=== PATIENT | female | born 2000 | race Caucasian/White ===

== ENCOUNTER 2023-01-30 18:25 | Emergency (ER) | payer BC, SELFPAY ==
[2023-01-30 18:26] VITALS: BP 128/87; PULSE 105; RESP 19; TEMP 36.2; O2SAT 100; BMI 33.7
--- NOTE | 2023-01-30 19:02 | EDS_ITS ---
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 The pain has been constant. There is no nausea or vomiting. There is no diarrhea or constipation. There is no anorexia. There is no fever or chills. Does not hurt to walk. Does not hurt to cough. She denies dysuria, frequency, urgency or hematuria. She denies back or flank pain. She does have a metal allergy and a significant periumbilical rash. Prior similar symptoms: No Recent Illness/Hospitalization: No PFSH PFSH Allergy/AdvReac Type Severity Reaction Status Date / Time No Known Allergies Allergy Verified 01/30/23 18:28 Surgical History no surgical history no surgical history Social History (Updated 01/30/23 @ 19:[address] James Mays MD) household members: none alcohol intake: never substance use type: does not use ROS ROS ED Constitutional Constitutional ED: Denies chills, fever(s), subjective, sweats or weight loss Eyes Eyes: Denies blurry vision, change in vision or diplopia ENT ENT ED: Denies ear pain, rhinorrhea or sore throat Cardiovascular Cardiovascular: Denies chest pain, orthopnea, palpitations, paroxysmal nocturnal dyspnea or racing heartbeat Respiratory/Chest Respiratory/Chest: Denies cough, dyspnea, dyspnea on exertion, orthopnea or paroxysmal nocturnal dyspnea Gastrointestinal Gastrointestinal: Reports abdominal pain; Denies constipation, diarrhea, melena, nausea or vomiting Genitourinary Genitourinary ED: Reports LMP (females 10-50) Details: Comment: (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); Denies dysuria, hematuria or urinary frequency Musculoskeletal Musculoskeletal: Denies arthralgias, back pain, myalgias or neck pain Integumentary Reports rash Neurologic Neurologic: Denies headache(s), paresthesias or weakness Psychiatric Psychiatric: Reports anxiety; Denies depression Endocrine Endocrinology: Denies cold intolerance or heat intolerance Hematologic/Lymphatic Hematologic/Lymphatic: Reports systems reviewed and no addt'l complaints, except as documented EXAM Physical Exam Const Vital Signs: 01/30/23 18:26 Temperature 97.2 F L Temperature Source Temporal Pulse Rate 105 H Respiratory Rate 19 H Blood Pressure 128/87 H Blood Pressure Mean 100 Pulse Ox 100 Oxygen Delivery Method Room Air Positive well nourished and well developed General Appearance ED: well developed and NAD; Negative for cyanotic, diaphoret ic or pallor HEENT Reports moist mucous membranes HEENT Narrative: Head is atraumatic normocephalic. Ears are normal. Nares are patent. Pharynx is normal. Eyes PERRL and EOMs intact bilaterally General Eye ED: Negative for pale conjunctiva or scleral icterus Neck no lymphadenopathy, supple and no JVD Resp normal respiratory effort Cardio regular rate, regular rhythm, S1 normal heart sound, S2 normal heart sound and no murmurs GI non-tender, non-distended and no masses; Negative for normal to inspection, nondistended, normoactive bowel sounds or hepatosplenomegaly GI Narrative: Patient has evidence of contact dermatitis due to metal on belts. There is no evidence of an infection. Had the patient jump up and down with no discomfort. She is not anorexic. Negative Rovsing sign. Inspection: Negative for abdominal distention Auscultation: normoactive bowel sounds Palpation: soft; Negative for tender, guarding, splenomegaly, mass or rebound tenderness present Back/Spine no CVA tenderness Extremity normal to inspection General Extremety ED: Negative for edema or tenderness General Extremity: Negative for edema Neuro oriented x3, CN's II-XII intact bilaterally and no sensory deficits noted Sensorium / Orientation: alert Psych mental status grossly normal Skin No no rashes or lesions noted, no wounds and skin turgor normal General Skin Exam: elasticity normal; Negative for jaundice or pallor Rashes: rashes noted MDM MDM MDM Narrative Medical decision making narrative: Patient was made sure that she does not have appendicitis. She has no symptoms and a benign abdominal exam. Furthermore she is afebrile. Patient was told the cause of her periumbilical pain is unknown. There is no evidence of hernia or defect. History & Record Review Additional record(s) reviewed:: No prior records Discharge Plan Triage Chief Complaint: Abd Pain ED Provider: DavonJames Dx/Rx/DC Orders Clinical Impression: Umbilical pain, Contact dermatitis Instructions: ED Abdominal Pain Unkn Cause Fem Primary Care Provider: Michelle Pedro Referrals: [facility] Doctor,Out of [Non-Staff] - As Needed Disposition Disposition: Home, Self Care
== END 2023-01-30 19:15 | disposition home or self-care (01) ==
PROVIDERS: Emergency Provider Emergency Medicine; PCP Family Medicine; Visit Provider Emergency Medicine
DX: R10.33 Periumbilical pain (principal); L25.9 Unspecified contact dermatitis, unspecified cause
CPT/HCPCS: 99282

== ENCOUNTER 2024-02-24 10:19 | Emergency (ER) | payer BC, SELFPAY ==
[2024-02-24 10:21] VITALS: BP 141/81; PULSE 113; RESP 16; TEMP 37; O2SAT 99; BMI 36.8
--- NOTE | 2024-02-24 10:25 | ED.VIS.CHEST ---
HPI History of Present Illness Chief Complaint: Chest Pain [facility] Medical History (Updated 02/24/24 @ 10:24 by Joelle Mead) Anxiety Allergy/AdvReac Type Severity Reaction Status Date / Time No Known Allergies Allergy Verified 01/30/23 18:28 Surgical History (Updated 02/24/24 @ 10:26 by Joelle Mead) H/O mastectomy Social History (Updated 01/30/23 @ 19:[address] James Mays MD) household members: none Smoking Status: Current every day smoker tobacco type: e-cigarettes alcohol intake: never substance use type: does not use EXAM Physical Exam Const Vital Signs: 02/24/24 10:21 02/24/24 10:28 02/24/24 12:20 Temperature 98.6 F Temperature Source Oral Pulse Rate 113 H 91 Respiratory Rate 16 18 Blood Pressure 141/81 H 133/81 H Blood Pressure Mean 101 98 Pulse Ox 99 97 Oxygen Delivery Method Room Air Room Air Room Air 02/24/24 13:52 Temperature Temperature Source Pulse Rate 74 Respiratory Rate 18 Blood Pressure 134/88 H Blood Pressure Mean 103 Pulse Ox 99 Oxygen Delivery Method Room Air MDM MDM MDM Narrative Medical decision making narrative: HISTORY OF PRESENT ILLNESS: 23-year-old female presents with chest pain started last night while she was at work. She states this could be anxiety. She has no complaints at this time. She is a small to be evaluated just to be safe. Denies chest pain at this time. Denies calf tenderness. Denies feeling presents for PE. Denies any bleeding diathesis. Notes she is on hormone placement therapy in the form of testosterone denies any estrogen use. The patient denies recent surgery in the last 4 weeks or immobilization in the last 3 days, denies previous diagnosis of DVT or PE, hemoptysis, unilateral leg swelling or malignancy with treatment the last 6 months or palliative. No estrogen use noted. Patient denies sudden onset of pain, no tearing sensation, no migratory symptoms, no new numbness, weakness or loss of sensation. Patient denies family history or personal history of Connective tissue disorders (Marfan's Syndrome, Hector Danlos etc) REVIEW OF SYSTEMS: Pertinent positives: Chest pain Pertinent negatives: Shortness of breath, leg swelling, bleeding diathesis PHYSICAL EXAM: Nursing triage notes reviewed, Vital signs reviewed Constitutional: please see mdm HENT: MMM Eyes: Pupils equal round and reactive to light, Extraocular muscles intact Neck: No stridor, no JVD, full neck ROM Lungs: Clear to auscultation, No wheezing or rales. No increased work of breathing, no conversational dyspnea, no accessory muscle use, no nasal flaring. No respiratory distress noted Heart: Regular rate and rhythm, No murmurs, No rubs and No gallops, 2+ distal pulses (radial, femoral, posterior tibial) in all extremities Abdomen: Soft, there is no tenderness, rigidity, rebound or guarding, no obvious peritoneal signs, no palpable pulsatile abdominal masses, no auscultated abdominal bruit : No CVAT Extremities: No edema Neuro: No focal neurological deficits, cranial nerves II through XII intact, 5/5 strength in all extremities. Intact sensation to light touch in all extremities, 2+ reflexes bilateral patella tendons. Normal gait. No ataxia. Skin: No rash or lesions noted MEDICAL DECISION MAKING: Chief Complaint: Chest pain External records reviewed: No recent cardiac catheterizations, stress test or echocardiograms noted in the chart Factors affecting care: Anxiety Social determinants of health: Denies illicit drug use History obtained from others: none Consults: none [facility] Narrative: Patient was initially tachycardic otherwise hemodynamically stable afebrile and nontoxic-appearing. Exam without focal cardiopulmonary normalities. I considered the following differential diagnosis: ACS, arrhythmia, anemia, pneumonia, pneumothorax, PE, aortic dissection, GI etiology (Boerhaave syndrome, Linda-Ren tear), pericarditis I obtained a broad lab and imaging workup to further elucidate the etiology of the patient complaints. I considered pulmonary embolism as a potential etiology given chest pain and elevated heart rate on initial presentation however the patient had low risk Wells score and as such a low suspicion for pulmonary embolism. The patient's EKG had no evidence of right heart strain which further decreases my suspicion. ALL IMAGES (IF OBTAINED) HAVE BEEN PERSONALLY REVIEWED AND INTERPRETED BY MYSELF. EKG was sinus tachycardia rate of 113, normal axis, normal intervals, no obvious STEMI, ARVD or WPW High-sensitivity troponin is negative, no evidence of myocardial ischemiax2 I have personally reviewed the patient's chest x-ray. Chest x-ray is unremarkable for pulmonary edema, pneumothorax, pneumonia or focal cardiopulmonary abnormality. CBC without leukocytosis, severe anemia, no thrombocytopenia. BMP without evidence of significant electrolyte abnormalities, no anion gap, no acute kidney injury. The synthesis of the patient's history, physical exam, labs images suggest no acute life-limiting etiology specifically no suspicion for PE given normal small score. She had no stigmata of aortic dissection. Chest x-ray had no evidence of pneumothorax pneumonia or pulmonary edema. She rules out of ACS based on her high-sensitivity troponin protocol. Unclear etiology may be musculoskeletal inflammatory or otherwise. Patient appropriate discharge home with close outpatient follow-up for further test including echocardiogram, Holter monitor. This patient was shared with the patient. The patient and/or family, caregivers express understanding. The patient and/or family, caregivers agrees with the plan. Shared decision making: I will have a discussion with the patient and or visitors regarding risk/benefits of further testing or admission. They will be made aware of of the risk/benefits inherent in this decision they will be given the opportunity to voice understanding. Total critical care time today provided was at least 0 minutes. This excludes separately billable procedures. Critical care time (if documented) is secondary to the patient having high probability of clinically significant/life threatening deterioration in the patient's condition which required my urgent intervention. Impression: 1. Chest pain 2. Tachycardia Dispo: discharge home This note was generated with [employer] dictation software. It may contain incorrect words, spelling, and punctuation that were not noted in review of the chart prior to signing. Lab Data Labs: Laboratory Results - last 24 hr 02/24/24 02/24/24 10:17 12:21 WBC 8.6 RBC 5.11 Hgb 13.2 Hct 40.7 MCV 79.6 L MCH 25.8 L MCHC 32.4 RDW Std Deviation 37.7 RDW Coeff of Chago 13.2 Plt Count TNP MPV 11.8 Immature Gran % (Auto) 0.600 Neut % (Auto) 71.8 H Lymph % (Auto) 21.0 [place] % (Auto) 4.8 Eos % (Auto) 1.3 Baso % (Auto) 0.5 Absolute Neuts (auto) 6.2 Absolute Lymphs (auto) 1.80 Nucleated RBC % 0 Platelet Estimate SLT DEC Sodium 137 Potassium 3.9 Chloride 106 Carbon Dioxide 23.0 Anion Gap 8 BUN 12 Creatinine 1.04 H Estim Creat Clear Calc 90.31 Est GFR (MDRD) Af Amer 83 Est GFR (MDRD) Non-Af 68 BUN/Creatinine Ratio 11.5 Glucose 122 H Calcium 9.2 Troponin I High Sens 3 4 Radiography Diagnostic Testing: Clinical Impression(s) from Imaging Studies Chest X-Ray 02/24/24 10:27 IMPRESSION: Normal x-ray examination of the chest. Electronically Signed: Rizwan Kenyon MD at 10:53 EDT Reading Location ID and State: [address] [place] [address] , Service support , Discharge Plan Triage Chief Complaint: Chest Pain ED Provider: Regan Emerson Dx/Rx/DC Orders Instructions: Chest Pain [facility] Stand Alone Forms: Work / School Excuse Primary Care Provider: Michelle Pedro Referrals: Michelle Pedro MD [Primary Care Provider] - Activity Restrictions/Additional Instructions: Thank you for trusting us with your care today! Please take Tylenol (2 pills, 650 mg), ibuprofen (2 pills, 400 mg) every 6 hours as needed for pain and fever control. Please return to the emergency department if your symptoms change or worsen. Please follow with your primary care physician for further outpatient evaluation and management. Print Language: Ethiopian Disposition Disposition: Home, Self Care
--- NOTE | 2024-02-24 10:27 | RAD_ITS ---
STUDY: X-RAY CHEST REASON FOR EXAM: Female, 23 years old. Chest pain. TECHNIQUE: Single frontal view of the chest. COMPARISON: None. FINDINGS: The lungs are clear and expanded. There is no demonstrated pleural abnormality. Normal size heart. Normal mediastinum and von. Normal visualized pulmonary arteries. Normal visualized aortic arch and descending thoracic aorta. No abnormality of the visualized soft tissue structures of the upper abdomen. RAD/Chest 1 View (Portable) IMPRESSION: Normal x-ray examination of the chest. Electronically Signed: Rizwan Kenyon MD at 10:53 EDT ,
--- NOTE | 2024-02-24 10:27 | EKG12_ITS ---
Test Reason : CP Blood Pressure : / mmHG Vent. Rate : 113 BPM Atrial Rate : 113 BPM P-R Int : 154 ms QRS Dur : 088 ms QT Int : 338 ms P-R-T Axes : 039 063 016 degrees QTc Int : 463 [address] N[address] abnormality Abnormal ECG Confirmed by LIBORIO GALICIA, ELIAN ([id number]), supervising editor trailer HOUSTON PECK ([id number]) on 02/26/2024 9:26:29 AM Referred By: MICHAELA/YOSELIN Confirmed By:ELIAN CAPONE MD
[2024-02-24 11:04] LABS: Absolute Neutrophil Count 6.2 X10^3/uL (2.0-7.7); Basophil# 0.04 X10^3/uL; Basophil% 0.5 % (0-1); Eosinophil# 0.11 X10^3/uL; Eosinophils% 1.3 % (0-5); Hematocrit 40.7 % (37-47); Hemoglobin 13.2 g/dL (12.0-15.0); Mean Corp Hgb Conc 32.4 g/dL (32-36); Mean Corpuscular Hgb 25.8 pg (27.0-32.0); Mean Corpuscular Volume 79.6 fL (81-99); Mean Platelet Vol. 11.8 fl (6.2-12.0); Monocyte# 0.41 X10^3/uL; Monocyte% 4.8 % (0-10); NRBC Flagged by Analyzer 0 % (0-5); Neutrophil # 6.17 X10^3/uL (2.7-7.7); Neutrophil % 71.8 % (47-70); POSITIVE COUNT YES; RBC Distribution Width CV 13.2 % (11.6-14.6); RBC Distribution Width SD 37.7 fl (35.1-43.9); Red Blood Count 5.11 M/mm3 (4.2-5.4); White Blood Count 8.6 K/mm3 (4.4-11.0)
[2024-02-24 11:26] LABS: Anion Gap 8 (5-15); BUN 12 mg/dL (7-18); BUN/Creat Ratio 11.5 RATIO (10-20); Calcium,Total 9.2 mg/dL (8.5-10.1); Chloride 106 mmol/L (98-107); Creatinine, Serum 1.04 mg/dL (0.55-1.02); EST Glomerular Filtration Rate 68 mL/min (>60); Est Glom Filt Rate - Afr Amer 83 mL/min (>60); Estimated Creatinine Clearance 90.31 ml/min; Glucose 122 mg/dL (74-106); Potassium 3.9 mmol/L (3.5-5.1); Sodium Level 137 mmol/L (136-145); Troponin-I HS (w/2H Reflex) 3 pg/mL (3.0-54.0)
[2024-02-24 11:34] LABS: Differential Indicated SCAN CRITERIA MET
[2024-02-24 11:35] LABS: Platelet Estimate SLT DEC (ADEQ)
[2024-02-24 12:20] VITALS: BP 133/81; PULSE 91; RESP 18; O2SAT 97
[2024-02-24 12:55] LABS: Reflex Troponin-HS? (from REC) Y
[2024-02-24 13:27] LABS: Troponin-I HS 4 pg/mL (3.0-54.0)
[2024-02-24 13:52] VITALS: BP 134/88; PULSE 74; RESP 18; O2SAT 99
[2024-02-24 14:29] VITALS: BP 134/88; PULSE 16; RESP 17; TEMP 36.9; O2SAT 98
== END 2024-02-24 14:38 | disposition home or self-care (01) ==
PROVIDERS: Emergency Provider Emergency Medicine; PCP Family Medicine; Visit Provider Emergency Medicine
DX: R07.9 Chest pain, unspecified (principal); R00.0 Tachycardia, unspecified; F17.290 Nicotine dependence, other tobacco product, uncomplicated
CPT/HCPCS: 71045; 80048; 84484; 85025; 93005; 99284; J7030; A4216